=== PATIENT | male | born 1975 | race Caucasian/White ===

== ENCOUNTER 2017-05-30 16:44 | Emergency (ER) | payer OTHER ==
[~2017-05-30] VITALS: Ht 172.7 cm; Wt 63.5 kg
[~2017-05-30 16:44] MED LIST: DEPA500T PO; IBUP800T23 PO; KCL20 PO; WELL150T PO
[2017-05-30 16:45] VITALS: BP 130/92; PULSE 101; RESP 20; TEMP 101; O2SAT 99
[2017-05-30] MEDS ORDERED: ACETAMINOPHEN 325 MG TAB PO ONE (17:00)
[2017-05-30 17:21] LABS: AUTOMATED NEUTROPHIL # 7.3 TH/MM3 (1.8-7.7); BASOPHIL # 0.1 TH/MM3 (0-0.2); BASOPHIL % 0.7 % (0.0-2.0); EOSINOPHIL # 0.1 TH/MM3 (0-0.4); EOSINOPHIL % 0.9 % (0.0-4.0); HEMATOCRIT 37.8 % (39.0-51.0); LYMPH % 15.6 % (9.0-44.0); LYMPHOCYTE # 1.8 TH/MM3 (1.0-4.8); MEAN CELL VOLUME 94.4 FL (80.0-100.0); MEAN CORPUSCULAR HEMOGLOBIN 32.6 PG (27.0-34.0); MEAN CORPUSCULAR HGB CONC 34.5 % (32.0-36.0); MEAN PLATELET VOLUME 9.5 FL (7.0-11.0); MONO % 20.1 % (0.0-8.0); MONOCYTE # 2.3 TH/MM3 (0-0.9); NEUT % 62.7 % (16.0-70.0); PLATELET COUNT 225 TH/MM3 (150-450); RED CELL DISTRIBUTION WIDTH 13.9 % (11.6-17.2); WHITE BLOOD COUNT 11.6 TH/MM3 (4.0-11.0)
[2017-05-30 17:47] LABS: BICARBONATE 28.9 MEQ/L (21.0-32.0); CALCIUM 9.1 MG/DL (8.5-10.1); CREATININE 0.88 MG/DL (0.60-1.30)
[2017-05-30 18:05] LABS: BANDS 5 % (0-6); BASOPHILS 2 % (0-2); LYMPHOCYTES 13 % (9-44); MONOCYTES 16 % (0-8); POLYS (SEG NEUTROPHILS) 64 % (16-70)
[2017-05-30 18:06] LABS: ACANTHOCYTES OCC (NORMAL); TOXIC GRANULATION 3+ (NORMAL); TOXIC VACUOLATION PRESENT (NONE SEEN)
[2017-05-30] MEDS ORDERED: BUPR150CR PO (18:29)
[2017-05-30] MEDS ORDERED: GABA100C4 PO (18:29)
[2017-05-30] MEDS ORDERED: SERO25TA PO (18:29)
[2017-05-30] MEDS ORDERED: DEPA500T3 PO (18:29)
[2017-05-30] MEDS ORDERED: SODIUM CHLOR 0.9% 1000 ML INJ 1,000 ML IV ONE (18:45)
[2017-05-30] MEDS ORDERED: KETOROLAC TROMETHAMINE 30 MG/ML (IVP) VIAL IV PUSH ONE (18:45)
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
[2017-05-30] MEDS ORDERED: OSELTAMIVIR PHOSPHATE 75 MG CAP PO ONE (19:00)
--- NOTE | 2017-05-30 19:02 | RADRPT ---
EXAM DATE/TIME: 05/30/2017 18:43 [facility] COMPARISON: CHEST SINGLE AP, March 18, 2014, 19:24. INDICATIONS : Cough. MEDICAL HISTORY : Anxiety SURGICAL HISTORY : None. ENCOUNTER: Initial ACUITY: 1 day PAIN SCORE: 0/10 LOCATION: Bilateral chest FINDINGS: A single view of the chest demonstrates the lungs to be symmetrically aerated without evidence of mas s, infiltrate or effusion. The cardiomediastinal contours are unremarkable. Osseous structures are intact. CONCLUSION: 1. No acute findings. Mild hyperinflation. Mandeep Durham MD on May 30, 2017 at 18:59 Board Certified Radiologist. This report was verified electronically.
[2017-05-30] MEDS ORDERED: OSEL75 PO (20:08)
== END 2017-05-30 20:25 | disposition home or self-care (01) ==
LOC: NEPD 16:44
DX: R50.9 Fever, unspecified (principal); R52 Pain, unspecified; J02.9 Acute pharyngitis, unspecified; R53.81 Other malaise; F31.9 Bipolar disorder, unspecified; I10 Essential (primary) hypertension; J44.9 Chronic obstructive pulmonary disease, unspecified; F20.9 Schizophrenia, unspecified; F17.210 Nicotine dependence, cigarettes, uncomplicated
CPT/HCPCS: 71045; 80048; 85007; 85027; 87081; 87804; 87880; 96374; 99284; J1885; J7030